=== PATIENT | male | born 1975 | race Two or more races ===

== ENCOUNTER 2022-04-15 19:37 | Inpatient (IN) | payer OTHER ==
[~2022-04-15] VITALS: Ht 180.3 cm; Wt 102.5 kg
--- NOTE | 2022-04-15 19:43 | NUR ---
JULIET 89 FROM HOME FOR C/O EORSENING EPIGASTRIC PAIN X 2 WEEKS. PT A/OX4. TOLERATING R/A WELL WITH NO RESP DISTRESS.
[2022-04-15] MEDS ORDERED: FAMOTIDINE/PF INJ 20 MG/2 ML VIAL IV ONE ×2 (20:00→20:05)
[2022-04-15] MEDS ORDERED: IV NS 0.9% 1,000 ML BAG IV ONE (20:00)
--- NOTE | 2022-04-15 20:10 | NUR ---
PINEAPPLE PLANTATION MANAGER AT PT'S BEDSIDE
--- NOTE | 2022-04-15 20:17 | NUR ---
PT TAKEN TO CT VIA VERO
[2022-04-15] MEDS ORDERED: IOHEXOL-300 100 ML VIAL IV ONE (20:19)
[2022-04-15] MEDS ORDERED: IV NS 0.9% 250 ML IV ONE (20:19)
[2022-04-15 20:32] LABS: BASOPHILS % (AUTO) 0.3 % (0.0-2.0); EOSINOPHILS % (AUTO) 0.5 % (0.0-6.0); HEMATOCRIT 38 % (39-51); HEMOGLOBIN 12.5 g/dL (13.5-17.5); LYMPHOCYTES # (AUTO) 1.8 K/uL (0.8-4.8); LYMPHOCYTES % (AUTO) 18.4 % (20.0-44.0); MEAN CORPUSCULAR HGB CONC 33 g/dl (31.0-36.0); MEAN CORPUSCULAR VOLUME 85 fL (80-96); MONOCYTES # (AUTO) 0.6 K/uL (0.1-1.30); MONOCYTES % (AUTO) 6.4 % (2.0-12.0); NEUTROPHILS # (AUTO) 7.4 K/uL (1.8-8.9); NEUTROPHILS % (AUTO) 74.4 % (43.0-81.0); PLATELET COUNT (AUTO) 288 K/uL (150-450); RED BLOOD CELL COUNT(AUTO) 4.44 MIL/uL (4.5-6.0); WHITE BLOOD COUNT (AUTO) 9.9 K/uL (4.3-11.0)
--- NOTE | 2022-04-15 20:49 | NUR ---
PT RETURNED TO ER BED [address]
[2022-04-15 20:53] LABS: CALCIUM, SERUM 8.7 mg/dL (8.5-10.1); CARBON DIOXIDE 21 mmol/L (21-32); CHLORIDE 105 mmol/L (98-107); CREATININE 1.3 mg/dL (0.6-1.3); GLUCOSE 178 mg/dL (74-106); POTASSIUM 4.3 mmol/L (3.5-5.1); SODIUM SERUM 137 mmol/L (136-145); UREA NITROGEN, BLOOD 22 mg/dL (7-18)
[2022-04-15 21:00] LABS: ALANINE AMINOTRANSFERASE 39 U/L (12-78); ALBUMIN 3.5 g/dL (3.4-5.0); ALKALINE PHOSPHATASE 86 U/L (46-116); ASPARTATE AMINOTRANSFERASE 35 U/L (15-37); BILIRUBIN,DIRECT 0.1 mg/dL (0.0-0.2); BILIRUBIN,TOTAL 0.6 mg/dL (0.2-1.0); LIPASE 99 U/L (73-393); TOTAL PROTEIN, SERUM 7.3 g/dL (6.4-8.2)
--- NOTE | 2022-04-15 21:06 | NUR ---
COVID SWAB DONE AND SENT TO LAB
[2022-04-15] MEDS ORDERED: FUROSEMIDE 40 MG/4 ML VIAL ONE (21:20)
[2022-04-15] MEDS ORDERED: ASPIRIN 325 MG TABLET ONE (21:21)
[2022-04-15] MEDS ORDERED: FUROSEMIDE 40 MG/4 ML VIAL IV ONE (21:30)
[2022-04-15] MEDS ORDERED: ASPIRIN 325 MG TABLET PO ONE (21:30)
--- NOTE | 2022-04-15 22:11 | NUR ---
URINE COLLECTED AND SENT TO LAB
[2022-04-15 23:27] LABS: BILIRUBIN,URINE NEGATIVE (NEGATIVE); LEUKOCYTE ESTERASE ,URINE NEGATIVE (NEGATIVE); NITRITE, URINE NEGATIVE (NEGATIVE); PH,URINE 5.5 (5.0-8.0); PROTEIN,URINE NEGATIVE (NEGATIVE); UGLUCOSE 1+ mg/dL (NEGATIVE); UROBILINOGEN,URINE 0.2 EU/dL (0.2)
[2022-04-15 23:29] LABS: COLOR,URINE STRAW (YELLOW)
[2022-04-15 23:57] LABS: RBC,URINE NONE SEEN /HPF (0-2); WBC,URINE NONE SEEN /HPF (0-3)
[2022-04-15 23:58] LABS: BACTERIA,URINE None seen /HPF (None Seen); SQUAMOUS EPITHELIAL CELL,UR Rare /HPF (None Seen)
[2022-04-16] VITALS (8 sets, daily range): BP systolic 136–172; BP diastolic 72–119
[2022-04-16] MEDS ORDERED: hydrALAZINE HCL IV 20 MG VIAL IV PRN (01:00)
[2022-04-16] MEDS ORDERED: ONDANSETRON HCL/PF 4 MG/2 ML VIAL IVP PRN (01:00)
[2022-04-16] MEDS ORDERED: Z GUARD REMEDY 4 OZ OINT TP PRN (01:00)
[2022-04-16] MEDS ORDERED: ZOLPIDEM TARTRATE 5 MG TABLET PO PRN (01:00)
[2022-04-16] MEDS ORDERED: DEXTROSE 50%-WATER 50 ML DISP.SYRIN IV PRN (01:00)
[2022-04-16] MEDS ORDERED: MAG HYDROX/AL HYDROX/SIMETH 30 ML UDC PO PRN (01:00)
[2022-04-16] MEDS ORDERED: ACETAMINOPHEN 325 MG TABLET PO PRN (01:00)
[2022-04-16] MEDS ORDERED: MAGNESIUM HYDROXIDE 30 ML UDC PO PRN (01:00)
--- NOTE | 2022-04-16 01:36 | NUR ---
TROP 238
[2022-04-16] MEDS ORDERED: LISI1TAB55 PO (02:07)
[2022-04-16] MEDS ORDERED: OMEP20CA15 PO (02:07)
[2022-04-16] MEDS ORDERED: AMLODIPINE (02:09)
--- NOTE | 2022-04-16 02:09 | NUR ---
REPORT GIVEN TO BRENDAN SOTO FOR EMILIE
--- NOTE | 2022-04-16 02:14 | NUR ---
POWERHOUSE ELECTRICIANBUSINESS ANALYST NOTE PATIENT IS TRANSFERRED TO THE UNIT ON A GURNEY. HE IS ALERT AND ORIENTED, AO X 4. PATIENT IS ON RA, TOLERATED WELL. NO S/S OF SOB OR DISTRESS. IV ACCESS IS AT HIS RIGHT FA, #20G, SL. FLUSHED WITH 10 CC NS, PATENT AND INTACT. UPON PATIENT ARRIVAL, VITAL SIGNS WERE TAKEN: BP IS 168 / 113; HR IS 93, RR IS 20, TEMPERATURE IS 98.0 F ORALLY; AND O2 SAT IS 96% ON RA. BS IS 136. ORIENTED THE PATIENT WITH SURROUNDINGS. PT VERBALIZED UNDERSTANDING. SAFETY MEASURES ARE IN PLACE: BED IS AT LOWEST AND LOCKED POSITION; SIDE RAILS UP X 2; CALL LIGHT AND TABLE ARE WITHIN REACH. WILL CONTINUE MONITOR THE PATIENT AND PROVIDE THE CARE PATIENT NEEDS.
--- NOTE | 2022-04-16 02:18 | NUR ---
PT TRANSFERRED TO 306-1 VIA ACLS PROTOCOL. VSS. ALL BELONGINGS WITH PT.
--- NOTE | 2022-04-16 02:20 | NUR ---
STRUCTURAL ANALYSIS ENGINEER NOTE PATIENT IS NO EXTERNAL INDUSTRIAL COOK, ON THE MONITOR, PATIENT'S HEART RHYTHM IS SR WITH HEART RATE AT 80Ss.
[2022-04-16] MEDS: ENOXAPARIN SODIUM 40 MG/0.4 ML DISP.SYRIN SQ SCH ×2 (03:17→21:34)
--- NOTE | 2022-04-16 04:50 | NUR ---
LAUNDRY HOUSEKEEPER NOTE PT'S BP IS 172/119; HR IS 92. PRN MEDICATION HYDRALAZINE 10 MG IV GIVEN PER MD ORDER. WASTED 10 MG. JOAQUÍN HERNANDEZ WITNESSED.
[2022-04-16 05:56] LABS: BASOPHILS % (AUTO) 0.3 % (0.0-2.0); EOSINOPHILS % (AUTO) 0.3 % (0.0-6.0); HEMATOCRIT 38 % (39-51); HEMOGLOBIN 12.7 g/dL (13.5-17.5); LYMPHOCYTES % (AUTO) 19.5 % (20.0-44.0); MEAN CORPUSCULAR HGB CONC 33 g/dl (31.0-36.0); MEAN CORPUSCULAR VOLUME 85 fL (80-96); MONOCYTES # (AUTO) 0.8 K/uL (0.1-1.30); MONOCYTES % (AUTO) 8.1 % (2.0-12.0); NEUTROPHILS # (AUTO) 7.2 K/uL (1.8-8.9); NEUTROPHILS % (AUTO) 71.8 % (43.0-81.0); PLATELET COUNT (AUTO) 286 K/uL (150-450); RED BLOOD CELL COUNT(AUTO) 4.53 MIL/uL (4.5-6.0)
--- NOTE | 2022-04-16 05:59 | NUR ---
VENEER JOINTER RETURNER NOTE RECHECKED PT'S BLOOD PRESSURE. BP IS 146/82, HR IA 89.
[2022-04-16 06:16] LABS: CALCIUM, SERUM 8.9 mg/dL (8.5-10.1); CREATININE 1.3 mg/dL (0.6-1.3); MAGNESIUM 2.2 mg/dL (1.8-2.4); PHOSPHORUS 3.4 mg/dL (2.5-4.9); POTASSIUM 3.5 mmol/L (3.5-5.1)
[2022-04-16 06:30] LABS: THYROID STIMULATING HORMONE 2.882 uIU/mL (0.358-3.74)
[2022-04-16] MEDS: BLOOD SUGAR DIAGNOSTIC 1 EACH STRIP IN SCH ×4 (06:41→21:36)
[2022-04-16] MEDS: INSULIN REGULAR, HUMAN 100 UNIT/ML 3 ML VIAL SQ PRN ×3 (06:46→21:52)
--- NOTE | 2022-04-16 06:53 | NUR ---
TILE LAYER SUPERVISOR CLOSING NOTE PATIENT IS SLEEPING IN BED; EASILY BEING AROUSED. HE IS ALERT AND ORIENTED, AO X 4. PATIENT IS ON RA, TOLERATED WELL. NO S/S OF SOB OR DISTRESS. IV ACCESS IS AT HIS RIGHT FA, #20G, SL; PATENT AND INTACT. PATIENT IS NO EXTERNAL DIGITAL PRINTER, ON THE MONITOR, PATIENT'S HEART RHYTHM IS SR WITH PVCS; AND HEART RATE AT 80s TO 90s. PATIENT IS ASYMPTOMATIC. SAFETY MEASURES ARE IN PLACE: BED IS AT LOWEST AND LOCKED POSITION; SIDE RAILS UP X 2; CALL LIGHT AND TABLE ARE WITHIN REACH. WILL ENDORSE NEXT SHIFT NURSE FOR CONTINUING PATIENT CARE.
--- NOTE | 2022-04-16 07:18 | NUR ---
HYDROGEN PLANT OPERATIONS MANAGER OPENING NOTE RECEIVED PT AWAKE IN BED, AOX4, ABLE TO MAKE NEEDS KNOWN, ON RA, TOLERATED WELL AT 96% WITHOUT ANY SOB. IV ACCESS IS AT HIS RIGHT FOREARM G#20, SL; PATENT, INTACT AND FLUSHING WELL. TELEMONITORING READS SR WITH PVCS WITH HR OF 91. DENIES PAIN NOR DISCOMFORT AT THE MOMENT. EDUCATED REGARDING STRICT INTAKE AND OUTPUT. SAFETY MEASURES ARE IN PLACE: BED LOCKED AND AT LOWEST POSITION; SIDE RAILS UP X 2; CALL LIGHT AND TRAY TABLE ARE WITHIN REACH. WILL CONTINUE PLAN OF CARE.
[2022-04-16] MEDS: ASPIRIN 81 MG TAB.CHEW PO SCH (08:53)
[2022-04-16] MEDS ORDERED: PANTOPRAZOLE 40 MG VIAL IV SCH (09:00)
[2022-04-16] MEDS ORDERED: FUROSEMIDE 40 MG/4 ML VIAL IV SCH (09:00)
--- NOTE | 2022-04-16 09:26 | NUR ---
RN NOTE- NM HIDA SCAN CONSENTS SIGNED
[2022-04-16] MEDS ORDERED: PANTOPRAZOLE 40 MG TABLET.DR PO SCH (10:30)
[2022-04-16] MEDS ORDERED: VALSARTAN 80 MG TABLET PO SCH (10:30)
[2022-04-16] MEDS ORDERED: ASPI-1420 PO (10:57)
[2022-04-16] MEDS ORDERED: AMLO-213 PO (10:57)
[2022-04-16] MEDS: FUROSEMIDE 40 MG/4 ML VIAL IV SCH ×3 (10:59→17:32)
[2022-04-16] MEDS: POTASSIUM CHLORIDE 20 MEQ TAB.PRT.SR PO SCH ×2 (11:00→12:09)
--- NOTE | 2022-04-16 12:15 | NUR ---
RN NOTES - PATIENT PICKED UP BY WHEELCHAIR TO DO HIDA SCAN
--- NOTE | 2022-04-16 13:52 | NUR ---
RN NOTES - PT BACK FROM HIDA SCAN, STABLE
--- NOTE | 2022-04-16 19:00 | NUR ---
CHECKER STOCKER OPENING NOTE PT IS SITTING IN BED SURROUNDED BY HIS FAMILY MEMBERS. SHE IS ALERT AND ORIENTED, AOX4. HE IS ON RA, NO S/S OF SOB OR DISTRESS. IV ACCESS IS AT HIS RIGHT FOREARM G#20G, SL; FLUSHED WITH 10 CC NS. PATENT AND INTACT. PATIENT IS ON EXTERNAL TELE MONITOR, ON THE MONITOR. IT SHOWS SR WITH HR AT 80S. PATIENT DENIES OF HAVING OF ANY PAIN OR DISCOMFORT AT THIS MOMENT. EDUCATED PATIENT THAT HE IS ON FLUID RESTRICTION AND STRICT INTAKE AND OUTPUT. PATIENT VERBALIZED UNDERSTANDING. SAFETY MEASURES ARE IN PLACED: BED IS LOCKED AND AT THE LOWEST POSITION; SIDE RAILS UP X 2; CALL LIGHT & TABLE ARE WITHIN REACH. WILL CONTINUE MONITOR THE PATIENT AND PROVIDE THE CARE PATIENT NEEDS.
--- NOTE | 2022-04-16 19:16 | NUR ---
MANAGER ACCESS CLOSING NOTE PT AWAKE IN BED WITH DAUGHTER AND , AOX4 ABLE TO MAKE NEEDS KNOWN, ON RA, TOLERATED WELL AT 97% WITHOUT ANY SOB. IV ACCESS IS AT HIS RIGHT HAND G#20, SL; PATENT, INTACT AND FLUSHING WELL. TELEMONITORING READS SR WITH 86 HR. DENIES PAIN NT BUT GETS OCCASIONAL LEG CRAMPING. STRICT INTAKE AND OUTPUT MAINTAINED. ALL NEEDS MET, ALL DUE MEDS GIVEN. SAFETY MEASURES MAINTAINED: BED LOCKED AND AT LOWEST POSITION; SIDE RAILS UP X 2; CALL LIGHT AND TRAY TABLE ARE WITHIN REACH. ENDORSED TO CANCELING MACHINE OPERATOR NURSE.
--- NOTE | 2022-04-16 21:27 | NUR ---
COMMUTATOR INSPECTOR NOTE PATIENT STATED HE IS HAVING PAIN 8 OUT OF 10 AT HIS EPIGASTRIC REGION AND LEG CRAMPS. TEXT MD INTERVENTIONAL RADIOLOGY TECH AND RECEIVED ORDERS.
[2022-04-16] MEDS ORDERED: HYDROCODONE/APAP 10/325MG TABLET PO PRN (21:30)
[2022-04-17] VITALS (7 sets, daily range): BP systolic 131–158; BP diastolic 76–101
[2022-04-17 06:27] LABS: BASOPHILS % (AUTO) 0.3 % (0.0-2.0); EOSINOPHILS % (AUTO) 1.2 % (0.0-6.0); HEMATOCRIT 43 % (39-51); HEMOGLOBIN 14.2 g/dL (13.5-17.5); LYMPHOCYTES # (AUTO) 1.7 K/uL (0.8-4.8); LYMPHOCYTES % (AUTO) 21.1 % (20.0-44.0); MEAN CORPUSCULAR HGB CONC 33 g/dl (31.0-36.0); MEAN CORPUSCULAR VOLUME 85 fL (80-96); MONOCYTES # (AUTO) 0.6 K/uL (0.1-1.30); MONOCYTES % (AUTO) 7.7 % (2.0-12.0); NEUTROPHILS # (AUTO) 5.7 K/uL (1.8-8.9); NEUTROPHILS % (AUTO) 69.7 % (43.0-81.0); PLATELET COUNT (AUTO) 304 K/uL (150-450); RED BLOOD CELL COUNT(AUTO) 5.02 MIL/uL (4.5-6.0); WHITE BLOOD COUNT (AUTO) 8.2 K/uL (4.3-11.0)
[2022-04-17] MEDS: INSULIN REGULAR, HUMAN 100 UNIT/ML 3 ML VIAL SQ PRN ×4 (06:32→21:26)
[2022-04-17] MEDS: BLOOD SUGAR DIAGNOSTIC 1 EACH STRIP IN SCH ×4 (06:32→21:28)
--- NOTE | 2022-04-17 06:44 | NUR ---
SHIPPING SERVICES SALES REPRESENTATIVE CLOSING NOTE PT IS SLEEPING IN BED; EASILY BEING AROUSED. HE IS ALERT AND ORIENTED, AO X 4. HE IS ON RA, NO S/S OF SOB OR DISTRESS. IV ACCESS IS AT HIS RIGHT FOREARM #20G, SL; FLUSHED WITH 10 CC NS. PATENT AND INTACT. PATIENT IS ON EXTERNAL TELE MONITOR, ON THE MONITOR. IT SHOWS SR WITH PVCs AND BBBs; AND HR AT 70S. PATIENT DENIES OF HAVING OF ANY PAIN OR DISCOMFORT AT THIS MOMENT. SAFETY MEASURES ARE IN PLACED: BED IS LOCKED AND AT THE LOWEST POSITION; SIDE RAILS UP X 2; CALL LIGHT & TABLE ARE WITHIN REACH. WILL ENDORSE NEXT SHIFT NURSE FOR CONTINUING PATIENT CARE.
[2022-04-17 06:52] LABS: ALBUMIN 3.5 g/dL (3.4-5.0); BILIRUBIN,TOTAL 0.8 mg/dL (0.2-1.0); CREATININE 1.6 mg/dL (0.6-1.3); MAGNESIUM 2.2 mg/dL (1.8-2.4); PHOSPHORUS 4.8 mg/dL (2.5-4.9); POTASSIUM 3.6 mmol/L (3.5-5.1); TOTAL PROTEIN, SERUM 7.6 g/dL (6.4-8.2)
[2022-04-17] MEDS ORDERED: CARVEDILOL 6.25 MG TABLET PO SCH (07:00)
--- NOTE | 2022-04-17 07:20 | NUR ---
INSPECTOR CASING OPENING NOTE RECEIVED PT AWAKE IN BED, AOX4, ABLE TO MAKE NEEDS KNOWN, ON RA, TOLERATED WELL AT 98% WITHOUT ANY SOB. IV ACCESS IS AT HIS RIGHT FOREARM G#20, SL; PATENT, INTACT AND FLUSHING WELL. TELEMONITORING READS SR WITH PVCS AND BBB WITH HR OF 75. DENIES PAIN NOR DISCOMFORT AT THE MOMENT. REITERATED STRICT INTAKE AND OUTPUT. SAFETY MEASURES ARE IN PLACE: BED LOCKED AND AT LOWEST POSITION; SIDE RAILS UP X 2; CALL LIGHT AND TRAY TABLE ARE WITHIN REACH. WILL CONTINUE PLAN OF CARE.
[2022-04-17] MEDS: PANTOPRAZOLE 40 MG TABLET.DR PO SCH (08:58)
[2022-04-17] MEDS: ASPIRIN 81 MG TAB.CHEW PO SCH (08:59)
[2022-04-17] MEDS: SPIRONOLACTONE 25 MG TABLET PO SCH (08:59)
[2022-04-17] MEDS: VALSARTAN 80 MG TABLET PO SCH (08:59)
--- NOTE | 2022-04-17 14:45 | NUR ---
RN NOTES - PATIENT WITH AT BEDSIDE WANTS TO HAVE A LIST OF RECOMMENDED FOOD TO EAT AT HOME ONCE DISCHARGED, DIETARY CONSULT ORDERED. WILL FOLLOW UP.
--- NOTE | 2022-04-17 18:42 | NUR ---
CENTRAL SUPPLY MANAGER OPENING NOTE RECEIVED PT AWAKE IN BED WITH AT BEDSIDE, CHANCE, ABLE TO MAKE NEEDS KNOWN, STILL ON RA, WITHOUT ANY SOB. IV ACCESS IS AT HIS RIGHT FOREARM G#20, SL; PATENT AND INTACT. TELEMONITORING READS SR WITH PVCS AND BBB WITH HR OF 79. PAIN-FREE THROUGHOUT THE SHIFT. STRICT INTAKE AND OUTPUT IMPLEMENTED, SAFETY MEASURES PROVIDED: BED LOCKED AND AT LOWEST POSITION; SIDE RAILS UP X 2; CALL LIGHT AND TRAY TABLE ARE WITHIN REACH. WILL ENDORSE TO PATIENT CARE ASSISTANT NURSE. Addendum: 04/17/22 at 1847 by REINALDO CORNELIUS RN *CLOSING NOTE
--- NOTE | 2022-04-17 19:29 | NUR ---
ABBIE RN OPENING NOTE RECEIVED PT AWAKE IN BED, AOX4,FAMILY AT BEDSIDE, ABLE TO MAKE NEEDS KNOWN, ON RA FLAVIO WELL,NO SIGN SOB/DISTRESS NOTED,NO COMPLAIN OF PAIN/DISCOMFORT AT THIS TIME,V ACCESS IS AT HIS RIGHT FOREARM G#20, SL; PATENT, INTACT AND FLUSHING WELL.STRICT INTAKE AND OUTPUT. SAFETY MEASURES ARE IN PLACE: BED LOCKED AND AT LOWEST POSITION; SIDE RAILS UP X 2; CALL LIGHT AND TRAY TABLE ARE WITHIN REACH. WILL CONTINUE TO MONITOR.
[2022-04-17] MEDS: CARVEDILOL 6.25 MG TABLET PO SCH (21:12)
[2022-04-17] MEDS: ENOXAPARIN SODIUM 40 MG/0.4 ML DISP.SYRIN SQ SCH (21:13)
[2022-04-18] VITALS (7 sets, daily range): BP systolic 113–155; BP diastolic 61–104
--- NOTE | 2022-04-18 06:13 | NUR ---
RN CLOSING NOTE; PT AWAKE IN BED, AAOX4,ABLE TO MAKE NEEDS KNOWN, ON RA FLAVIO WELL SATTING 98%,NO SIGN SOB/DISTRESS NOTED,NO COMPLAINED OF PAIN/DISCOMFORT DURING SHIFT,DUE MEDS GIVEN ORDER,ALL NEEDS ATTENDED,IV ACCESS RIGHT FOREARM G#20, SL; PATENT, INTACT AND FLUSHING WELL.STRICT INTAKE AND OUTPUT. SAFETY MEASURES ARE IN PLACE: BED LOCKED AND AT LOWEST POSITION; SIDE RAILS UP X 2; CALL LIGHT AND TRAY TABLE ARE WITHIN REACH. WILL ENDORSED TO NEXT SHIFT.
[2022-04-18] MEDS: INSULIN REGULAR, HUMAN 100 UNIT/ML 3 ML VIAL SQ PRN ×4 (06:37→21:24)
[2022-04-18] MEDS: BLOOD SUGAR DIAGNOSTIC 1 EACH STRIP IN SCH ×4 (06:39→21:27)
[2022-04-18 06:40] LABS: CREATININE 1.4 mg/dL (0.6-1.3); MAGNESIUM 2.4 mg/dL (1.8-2.4); PHOSPHORUS 4.2 mg/dL (2.5-4.9); POTASSIUM 3.5 mmol/L (3.5-5.1)
--- NOTE | 2022-04-18 07:15 | NUR ---
ms rn received on bed, awake,alert,oriented x4,not in any form of distress, respirations even and unlabored,no sob noted, lungs are clear,abdomen soft ,positive bowel sounds,denies pain at this time,will monitor patient.
[2022-04-18] MEDS: ASPIRIN 81 MG TAB.CHEW PO SCH (08:34)
[2022-04-18] MEDS: SPIRONOLACTONE 25 MG TABLET PO SCH (08:34)
[2022-04-18] MEDS: CARVEDILOL 6.25 MG TABLET PO SCH ×2 (08:35→21:08)
[2022-04-18] MEDS: VALSARTAN 80 MG TABLET PO SCH (08:36)
[2022-04-18] MEDS: PANTOPRAZOLE 40 MG TABLET.DR PO SCH (08:37)
[2022-04-18 09:29] LABS: HEMATOCRIT 43 % (39-51); HEMOGLOBIN 13.9 g/dL (13.5-17.5); MEAN CORPUSCULAR HGB CONC 33 g/dl (31.0-36.0); MEAN CORPUSCULAR VOLUME 86 fL (80-96); PLATELET COUNT (AUTO) 328 K/uL (150-450); RED BLOOD CELL COUNT(AUTO) 4.97 MIL/uL (4.5-6.0); WHITE BLOOD COUNT (AUTO) 8.2 K/uL (4.3-11.0)
--- NOTE | 2022-04-18 10:00 | NUR ---
ms rn was seen by jennifer casanova/ orders made and carried out.
[2022-04-18 18:11] LABS: EOSINOPHILS % (MANUAL) 1 % (0-4); LYMPHOCYTES % (MANUAL) 23 % (16-48); MONOCYTES % (MANUAL) 8 % (0-11.0); NEUTROPHILS % (MANUAL) 68 (42-76)
--- NOTE | 2022-04-18 19:37 | NUR ---
RN OPENING NOTE RECEIVED PT AWAKE IN BED, AOX4,ABLE TO MAKE NEEDS KNOWN, ON RA FLAVIO WELL,NO SIGN SOB/DISTRESS NOTED,NO COMPLAIN OF PAIN/DISCOMFORT AT THIS TIME,IV ACCESS RFA G#20, SL; PATENT, INTACT,SAFETY MEASURES ARE IN PLACE: BED LOCKED AND AT LOWEST POSITION; SIDE RAILS UP X 2; CALL LIGHT AND TRAY TABLE ARE WITHIN REACH. WILL CONTINUE TO MONITOR.
[2022-04-18] MEDS: ENOXAPARIN SODIUM 40 MG/0.4 ML DISP.SYRIN SQ SCH (21:09)
[2022-04-19] VITALS: BP 138/86
[2022-04-19 04:00] VITALS: BP 131/75
[2022-04-19 05:54] LABS: BASOPHILS % (AUTO) 0.3 % (0.0-2.0); EOSINOPHILS % (AUTO) 2.1 % (0.0-6.0); HEMATOCRIT 42 % (39-51); HEMOGLOBIN 13.8 g/dL (13.5-17.5); LYMPHOCYTES # (AUTO) 1.8 K/uL (0.8-4.8); LYMPHOCYTES % (AUTO) 23.9 % (20.0-44.0); MEAN CORPUSCULAR HGB CONC 33 g/dl (31.0-36.0); MEAN CORPUSCULAR VOLUME 85 fL (80-96); MONOCYTES # (AUTO) 0.6 K/uL (0.1-1.30); MONOCYTES % (AUTO) 8.3 % (2.0-12.0); NEUTROPHILS % (AUTO) 65.4 % (43.0-81.0); PLATELET COUNT (AUTO) 323 K/uL (150-450); RED BLOOD CELL COUNT(AUTO) 4.91 MIL/uL (4.5-6.0); WHITE BLOOD COUNT (AUTO) 7.7 K/uL (4.3-11.0)
[2022-04-19 06:16] LABS: CALCIUM, SERUM 8.9 mg/dL (8.5-10.1); CREATININE 1.4 mg/dL (0.6-1.3); MAGNESIUM 2.4 mg/dL (1.8-2.4); PHOSPHORUS 3.8 mg/dL (2.5-4.9); POTASSIUM 3.8 mmol/L (3.5-5.1)
[2022-04-19] MEDS: INSULIN REGULAR, HUMAN 100 UNIT/ML 3 ML VIAL SQ PRN ×2 (06:22→12:05)
[2022-04-19] MEDS: BLOOD SUGAR DIAGNOSTIC 1 EACH STRIP IN SCH ×2 (06:23→11:40)
--- NOTE | 2022-04-19 06:40 | NUR ---
RN CLOSING NOTE; PT AWAKE IN BED, AAOX4,ABLE TO MAKE NEEDS KNOWN, ON RA FLAVIO WELL SATTING 98%,NO SIGN SOB/DISTRESS NOTED,NO COMPLAINED OF PAIN/DISCOMFORT DURING SHIFT,DUE MEDS GIVEN ORDER,ALL NEEDS ATTENDED,IV ACCESS RIGHT HAND G#20, SL; PATENT, INTACT AND FLUSHING WELL.STRICT INTAKE AND OUTPUT. SAFETY MEASURES ARE IN PLACE: BED LOCKED AND AT LOWEST POSITION; SIDE RAILS UP X 2; CALL LIGHT AND TRAY TABLE ARE WITHIN REACH. WILL ENDORSED TO NEXT SHIFT.
[2022-04-19 07:00] VITALS: BP 132/83
--- NOTE | 2022-04-19 07:20 | NUR ---
CARPET INSPECTOR FINISHED OPENING NOTE PATIENT IN BED ALERT AND ORIENTED, ABLE TO MAKE NEEDS KNOWN. ON ROOM AIR TOLERATED WELL SATURATING 98% WITH NO SIGNS OF RESPIRATORY DISTRESS NOTED. NO COMPLAIN OF PAIN/DISCOMFORT AT THIS TIME. WITH IV ACCESS ON THE RIGHT HAND G#20, SL PATENT AND INTACT. SAFETY MEASURES ARE IN PLACE: BED LOCKED AND AT LOWEST POSITION; SIDE RAILS UP X 2; CALL LIGHT AND TRAY TABLE ARE WITHIN REACH. WILL CONTINUE WITH PLAN OF CARE.
[2022-04-19] MEDS: SPIRONOLACTONE 25 MG TABLET PO SCH (08:18)
[2022-04-19] MEDS: ASPIRIN 81 MG TAB.CHEW PO SCH (08:18)
[2022-04-19] MEDS: CARVEDILOL 6.25 MG TABLET PO SCH (08:19)
[2022-04-19] MEDS: PANTOPRAZOLE 40 MG TABLET.DR PO SCH (08:20)
[2022-04-19] MEDS: VALSARTAN 80 MG TABLET PO SCH (08:21)
[2022-04-19] MEDS ORDERED: EMPA25TA PO (10:22)
[2022-04-19] MEDS ORDERED: SPIR25TA6 PO (10:22)
[2022-04-19] MEDS ORDERED: CARV6.252 PO (10:22)
--- NOTE | 2022-04-19 11:08 | NUR ---
CORRECTION OFFICER HEAD NOTE SEEN BY DR. KING WITH ORDERS FOR DISCHARGE ONCE WITH [facility]. PATIENT DISCHARGE HEALTH TEACHINGS DONE AND VERBALIZED UNDERSTANDING. COMFORT MEASURES PROVIDED. AWAITING NURSE FROM [facility] FOR FITTING AND HEALTH TEACHINGS.
[2022-04-19 12:00] VITALS: BP 134/78
--- NOTE | 2022-04-19 14:00 | NUR ---
MILL FEEDER NOTE PATIENT FITTED WITH [facility] AND HEALTH TEACHIING DONE BY NURSE FROM [facility]. PATIENT VERBALIZED UNDERSTANDING AND APPRECIATION. IN STABLE CONDITION.
--- NOTE | 2022-04-19 14:30 | NUR ---
UNEMPLOYMENT INSURANCE DIRECTOR NOTE PATIENT DISCHARGED ORDERED. HEALTH TEACHING DONE REGARDING DISCHARGE INSTRUCTIONS INCLUDING FOLLOW UP APPOINTMENTS. VERBALIZED UNDERSTANDING AND APPRECIATION. IV ACCESS REMOVED AND COVERED WITH DRY DRESSING, TOLERATED WELL. PATIENT ON LIFE VEST. ACCOMPANIED PATIENT TO LOBBY ON A WHEELCHAIR. PATIENT PICKED UP BY . IN STABLE CONDITON. ENDORSED ACCORDINGLY.
== END 2022-04-19 15:35 | disposition home or self-care (01) | DRG 194 ==
LOC: ER 19:39 → TELE 04-16 01:33
PROVIDERS: ADMIT Nurse Practitioner Acute Care; ATTEND Internal Medicine
DX: I11.0 Hypertensive heart disease with heart failure (principal); N17.0 Acute kidney failure with tubular necrosis; I21.A1 Myocardial infarction type 2; I31.39 Other pericardial effusion (noninflammatory); I50.43 Acute on chronic combined systolic (congestive) and diastolic (congestive) heart failure; I42.9 Cardiomyopathy, unspecified; Z20.822 Contact with and (suspected) exposure to COVID-19; E11.9 Type 2 diabetes mellitus without complications; N28.1 Cyst of kidney, acquired; K76.0 Fatty (change of) liver, not elsewhere classified; E66.9 Obesity, unspecified; Z68.32 Body mass index [BMI] 32.0-32.9, adult; K80.20 Calculus of gallbladder without cholecystitis without obstruction; I35.1 Nonrheumatic aortic (valve) insufficiency; K82.8 Other specified diseases of gallbladder; Z87.891 Personal history of nicotine dependence
CPT/HCPCS: 36415; 71045-TC; 76705-TC; 78226; 80048-TC; 80053-TC; 80061-TC; 80076-TC; 81001; 82962-TC; 83690-TC; 83735-TC; 83880; 84100-TC; 84443-TC; 84484-TC; 85025-TC; 87081-TC; 93307-TC; A9537; C9113; C9803; G0378; J0360; J1650; J1815; J1940; J3490; J7030; J7050; Q9967